=== PATIENT | male | born 1950 | race Caucasian/White ===

== ENCOUNTER 2018-06-15 10:07 | Day surgery (SDC) | payer MEDICARE, OTHER ==
[2018-06-13 11:30] VITALS: BMI 29.5
[~2018-06-15 10:07] MED LIST: LACTATED RINGERS 1,000 ML IV SCH
[2018-06-15 10:37] VITALS: TEMP 98.5
[2018-06-15] MEDS ORDERED: LIDOCAINE 1% 20 ML VIAL (10MG/ML) FOR IV START INTRADERMA ONE (11:07)
[2018-06-15] MEDS ORDERED: PROPOFOL 10 MG/ML 20 ML VIAL IV ONE (11:22)
[2018-06-15] MEDS ORDERED: LIDOCAINE 1% INJ 10MG/ML (20 ML MDV) ONE (11:22)
--- NOTE | 2018-06-15 11:45 | P.PCN ---
Date of Procedure: 06/15/18 Procedure(s) Performed: Procedure: Esophagogastroduodenoscopy and esophageal dilation using the Microvasive [id number]-brm-gaxro balloon dilator size 15-18 mm Preoperative diagnosis: Dysphagia and history of esophageal stricture. Postoperative diagnosis: Esophageal stricture dilated up to 18 mm. Preparation and sedation: Was provided by anesthesia. Brief clinical history: The patient is a 68-year-old male with history of GERD with esophageal stricture that has required dilation on multiple occasions in the past. His last dilation was in June 2017 and has done well until around 1 or 2 months ago when his symptoms started to come back gradually. There was no weight loss or bleeding or other alarm symptoms. Procedure: With the patient on his left lateral decubitus position and after informed consent and adequate sedation, I passed the Olympus-GIF 160 video upper endoscope through the cricopharyngeus down the esophagus. At the level of the GE junction around 36 cm from the incisors there was a short benign- appearing stricture that did not allow the advancement of the endoscope. I then proceeded to pass the Microvasive gejsbgx-kst-dcrbo balloon dilator size 15 -18 mm through the operating channel of the endoscope and centered it at the level of the stricture and then inflated it in a stepwise fashion up to 18 mm. Adequate dilation was accomplished at 18 mm and there was oozing of blood. I did not use the next size balloon at this point. The endoscope could be advanced at this point into the stomach which was insufflated with air and inspected in detail including the retroflex view in the cardia. Finally, the endoscope was passed through the pylorus into the duodenum. Pyloric channel, duodenal bulb, post bulbar area and descending duodenum appeared within normal limits. The patient tolerated the procedure well. Plan: The patient was reassured. We asked that he stays on clear liquids for today and advance diet tomorrow if tolerated. I suggested that I see him in follow-up if problems. He will follow up with you as planned.
[2018-06-15 11:48] VITALS: RESP 16
[2018-06-15 12:13] VITALS: BP 136/85; PULSE 65
== END 2018-06-15 12:35 | disposition home or self-care (01) ==
LOC: ORWHC2ENDO 10:07
DX: K22.2 Esophageal obstruction (principal); K21.9 Gastro-esophageal reflux disease without esophagitis; I10 Essential (primary) hypertension; M19.90 Unspecified osteoarthritis, unspecified site; F39 Unspecified mood [affective] disorder; G47.33 Obstructive sleep apnea (adult) (pediatric); M10.9 Gout, unspecified; M86.9 Osteomyelitis, unspecified; Z96.641 Presence of right artificial hip joint; Z87.891 Personal history of nicotine dependence; Z79.899 Other long term (current) drug therapy
CPT/HCPCS: 43249; J2001; J2704; C1726

== ENCOUNTER → 2022-03-08 | Outpatient (CLI) | payer MEDICARE, OTHER ==
--- NOTE | 2022-03-09 05:46 | MR ---
EXAMINATION TYPE: MR lumbar spine wo con DATE OF EXAM: 03/08/2022 COMPARISON: None HISTORY: Schmorls Nodes in lumbar region, Lt Buttocks and Lt leg pain Multiplanar multiecho imaging of the lumbar spine without contrast. There is thoracolumbar levo rotoscoliotic deformity. No lumbar compression fracture. There is degener ative disc space narrowing throughout the lumbar spine. There is multilevel lumbar facet arthropathy with lateral recess stenosis at L3-4 and L4-5. There is also L2-3 lateral recess stenosis. No lumbar paraspinal mass. There is right psoas muscle atrophy. No compression fracture. No focal bone destruct ion. There is left side neural foraminal narrowing at L3-4 L4-5 levels due to disc space narrowing an d facet arthropathy. IMPRESSION: Multilevel spondylotic changes with scoliotic deformity. Left side multilevel neural foraminal narrow ing. Mild lateral recess stenosis as above at several levels. No fracture seen.
== END | disposition home or self-care (01) ==
LOC: RADMRIMAIN 12:54
PROVIDERS: ATTEND Family Medicine
DX: M51.36 Other intervertebral disc degeneration, lumbar region (principal)
CPT/HCPCS: 72148